=== PATIENT | male | born 1930 | race Caucasian/White ===

== ENCOUNTER 2016-05-04 15:38 | Inpatient (IN) | payer MEDICARE, OTHER ==
--- NOTE | ~2016-05-04 | DS ---
Discharge Summary [facility] [address] [place]. [address] NAME: GUSTAVO SHAIKH : 30 STATUS : DIS IN PAT#: [id number] AGE: 86 ADM/REG DATE : 05/04/16 MR#: [id number] REPORT SERV DATE: 05/06/16 DICTATED BY: ZAIDA GUEVARA DATE: 05/05/16 REPORT STATUS : Draft TRANSCRIBED BY: MODL DATE: 05/05/16 ADMISSION DATE: 05/04/2016 DISCHARGE DATE: SUMMARY DISCHARGE DIAGNOSES: 1. 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 2. Acute toxic encephalopathy. 3. Leukocytosis. 4. Coronary artery disease. 5. Hypertension. 6. Biventricular pacer. 7. Diabetes type 2. 8. Hypothyroidism. 9. LFT elevations with positive cholelithiasis. 10.Chronic debility. Discharged to [facility] [place]. HOSPITAL COURSE: The patient was admitted on 05/04/2016 by this junior technical writer initially for episodes of nausea from outside facility, was given Phenergan and had acute toxic encephalopathy and confusion after getting Phenergan with allergy to Phenergan. When arrived to emergency room, the patient was fairly unkempt but also found to be in TIM with CKD, volume depleted, and hyperkalemic, additionally having fairly advanced heart failure, history with biventricular pacer although was not clinically volume overloaded, and was actually volume depleted. The patient had initiated calcium D50 insulin protocol in emergency room for hyperkalemia. EKG did not show any ST changes, p.o. replacement of potassium from home medications, and diuresis were stopped. The patient was placed on serial BMP and lactic acid checks with serial abdominal exams. Close contact with nurse was made throughout the night. The patient was notably more comfortable and clinically was improving throughout the day. However, he has had fairly advanced disease process when discussing with the family member, Mr. Yves Lund, as he has had variety of illnesses that have become progressive debilitating with coronary artery disease, pacer, heart failure with EF 20%, diabetes and CKD. Despite aggressive attempts and while monitoring on telemetry, the patient was still not complaining of any abdominal pain, was doing well throughout night during the night checks with BURRITO MAKER. The patient was still responsive, approximately around 0215 hours just went out. BURRITO MAKER called for charge nurse and code blue was initiated. Potassium had decreased to 5.7, but lactate had slowly increased which prompted more close monitoring of abdominal exams. Code blue at ACS protocol was initiated around 0219 hours for PEA. ICU attending Dr. Haywood and attending of chart, this junior technical writer Dr. Guevara responded along with rapid response team, however, despite measures with CPR, chemical code, and electrical shocks and intubation, there was no return of pulse or spontaneous breathing. Multiple attempts to contact and grandson on chart were without availability. Discharge Summary [address] [place]. [address] NAME: GUSTAVO SHAIKH : 30 STATUS : DIS IN PAT#: [id number] AGE: 86 ADM/REG DATE : 05/04/16 MR#: [id number] REPORT SERV DATE: 05/06/16 DICTATED BY: ZAIDA GUEVARA DATE: 05/05/16 REPORT STATUS : Draft TRANSCRIBED BY: MODL DATE: 05/05/16 Additional contact [id number], Yves Lund, was contacted by this junior technical writer and updated. It reflected that the patient had been undergoing such a chronic medical debility, was actually considering more comfort measures, however, this was not reflected from any documentation seen in prior chart or from transfer. Series of events were detailed with the family, Mr. Yves Lund, who was only next of kin available, who understands and reports that he and his sister, the patient's were anticipating possible end of life scenario and possibility of comfort measures in near future. Family reports appreciation for rapid response team, care given on floor, and ICU staff for diligent care from [facility] and will contact family member, , acute change of events and passing of the patient at time of reported at 0247 hours. Per nursing notes and reports throughout night the patient was comfortable and peaceful prior to code blue and PEA arrest, house administration also at bedside with rapid response team. DDN/MODL Zaida Guevara MD / [id number] CC: MD Adrian Simon M.D.
--- NOTE | ~2016-05-04 | OP ---
Record Of [facility] [address] [place]. [address] NAME: GUSTAVO SHAIKH : 30 STATUS : ADM IN [facility]#: [id number] AGE: 86 ADM/REG DATE : 05/04/16 MR#: [id number] REPORT SERV DATE: 05/05/16 DICTATED BY: GERMAIN HAYWOOD DATE: 05/05/16 REPORT STATUS : Draft TRANSCRIBED BY: MODL DATE: 05/05/16 DATE OF PROCEDURE: 05/05/2016 PROCEDURE CODE 99 This is an 86-year-old patient who was admitted from the Hospitalist Service with nausea, vomiting, and history of peripheral arterial disease. Code Blue was called at 2:19 a.m. on 05/05/2016. The patient suddenly went unresponsive and pulseless. CPR was initiated, and upon connecting the patient to the monitor, he was in PEA. ACLS protocol was followed, and the patient received epinephrine x8 amps, one dose of vasopressin at 40 units, 4 amps of bicarb, 1 amp of calcium chloride, 1 amp of D-50, and 10 units of IV insulin to treat hyperkalemia. The patient also had an episode of ventricular tachycardia and was cardioverted x1 with 200 to 300 joules. The patient also received 300 of amiodarone and 100 mg of IV lidocaine. The patient was also intubated during the code. He remained in PEA throughout the entire code. Quick look with the echocardiogram at the bedside did not show any significant cardiac contractility, and the code was called at 02:47 a.m. The patient's family was notified and actually were in agreement to stop CPR and any further resuscitation. /TWINL Germain Haywood M.D. / [id number]
--- NOTE | ~2016-05-04 | HP ---
History And Physical [place] [id number] [facility] [place]. [address] NAME: GUSTAVO SHAIKH : 30 STATUS : ADM IN PAT#: [id number] AGE: 86 ADM/REG DATE : 05/04/16 MR#: [id number] REPORT SERV DATE: 05/04/16 DICTATED BY: ZAIDA GUEVARA DATE: 05/04/16 REPORT STATUS : Draft TRANSCRIBED BY: MODL DATE: 05/04/16 DATE OF ADMISSION: 05/04/2016 CHIEF COMPLAINT: Nausea and vomiting with abdominal pain. HISTORY OF PRESENT ILLNESS: The patient is an 86-year-old male, , who presents with having nausea and vomiting earlier today with abdominal pain. Subsequently was given Phenergan, which he appears to have an allergic reaction to, which causes confusion, and the patient subsequently became confused with this. Although the patient has been improving since arrival to the emergency room, is not still quite at his full baseline. The patient additionally had imaging done of his abdomen with no acute findings grossly. Pain appears to be improving. Nausea and vomiting have since resolved, but the patient was found to be hyperkalemic and volume depleted. Symptoms of lower abdominal pain were initially constant with moderate severity, improved, dull without radiation, associated with nausea, vomiting, and confusion after supportive treatment for nausea and vomiting. Was reported to have an episode of diarrhea, but not quite confirmed at this time. There are no worsening symptoms or relieving symptoms. Symptoms still are notably improved, as the patient is resting comfortably, only complaining about back pain that he has chronically. REVIEW OF SYSTEMS: For additional review of systems obtained to the best ability due to the patient's in and out confusion, somewhat generic answers. CONSTITUTIONAL: No fevers or chills are reported. EYES: No visual changes. ENT: No ear pain. No sore throat or congestion. NEURO: Did have confusion. No headaches. SKIN: Does have bruising on arms, but no rash. RESPIRATORY: Has reported occasional shortness of breath, but denies at this time. No wheezing. CV: No chest pain or palpitations. GI: Positive for nausea and vomiting. No diarrhea or dark stools. : No hematuria or frequency. MUSCULOSKELETAL: Does have mild myalgias and back pain, but no arthralgias. ENDOCRINE: Does have mild fatigue, but no polyuria reported. Does have hyperglycemia. HEME: No acute bleeding, but does have bruising episodes. IMMUNOLOGIC: No rhinorrhea. PSYCH: Mild confusion, but no anxiety. 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 SOCIAL HISTORY: No smoking, alcohol, or illicits. No family currently at bedside. Per outside records, POLST form not currently available, but was . History And Physical [address] [address] NAME: GUSTAVO SHAIKH : 30 STATUS : ADM IN [facility]#: [id number] AGE: 86 ADM/REG DATE : 05/04/16 MR#: [id number] REPORT SERV DATE: 05/04/16 DICTATED BY: ZAIDA GUEVARA DATE: 05/04/16 REPORT STATUS : Draft TRANSCRIBED BY: MODNahomy DATE: 05/04/16 FAMILY HISTORY: Heart disease in both parents. SURGICAL HISTORY: Has had pacer placement, toe amputation, laminectomy, and arthroscopy of shoulder. MANAGER OF ENTERPRISE: Dr. Randhawa for AICD and Dr. Vail for Vascular Surgery. PHYSICAL EXAMINATION: VITAL SIGNS: Blood pressure 111/70, temperature 97.6, pulse 82, O2 saturation 90% on room air. GENERAL: The patient is elderly, frail, slightly unkempt. Awakes on command, but fairly lethargic, falls asleep occasionally when not stimulated in conversation. EYES: No scleral icterus. EOMI. ENT: Nares patent. Dry mucous membranes. Tongue midline with dry tongue. RESPIRATORY: Clear to auscultation. No wheezes or rales. CV: Regular rate. No rubs. No pedal edema. GI: Soft, nontender. No rebound. Bowel sounds currently positive. : Appears normal male genitalia with Boykin placement. No gross rashes. SKIN: Warm and dry with bruising changes on hands bilaterally, have healed, multiple stages. LOWER EXTREMITIES: Does have old healed wounds on feet to prior surgical sites with mild erythema on amputated toe site, but no tenderness, redness, or drainage pustular. It is currently wrapped. LYMPH: No cervical or supraclavicular lymphadenopathy. HEME: No bleeding, but does have bruising sites. NEURO: Alert to person, not quite situation. Does move extremities, but fairly weak diffusely. Tongue midline. PSYCH: Calm, pleasant, but still slightly disoriented. ALLERGIES: TO PROMETHAZINE. HOME MEDICATIONS: Amiodarone, vitamin C, aspirin, Coreg, clarithromycin to have completion seen, Plavix, Amaryl, hydralazine, Imdur, levothyroxine, multivitamin, Protonix, Klor-Con, Florastor, Zoloft, Demadex. LABORATORY DATA: CBC; WBC count 15.2, H and H 13.2 and 40.0, platelets 337. Urinalysis, specific gravity 1.017 with negative nitrite and leuk esterase. CT abdomen and pelvis, bibasilar atelectasis and pleural fluid, cardiomegaly, AICD, cholelithiasis, minimal free fluid in the pelvis, calcific atherosclerosis. CMP, sodium 135 with potassium 6.5, chloride 102, carbon dioxide 25, BUN and creatinine 44 and 2.16 with glucose 202, calcium 8.7, T bili 0.6, AST 105, ALT 48, lipase 60, lactate 2.5. ASSESSMENT AND PLAN: 1. Hyperkalemia. 2. Acute toxic encephalopathy. 3. Acute kidney injury with volume depletion. 4. Leukocytosis. History And Physical [address] [address] NAME: GUSTAVO SHAIKH : 30 STATUS : ADM IN [facility]#: [id number] AGE: 86 ADM/REG DATE : 05/04/16 MR#: [id number] REPORT SERV DATE: 05/04/16 DICTATED BY: ZAIDA GUEVARA DATE: 05/04/16 REPORT STATUS : Draft TRANSCRIBED BY: MODNahomy DATE: 05/04/16 5. Coronary artery disease. 6. Hypertension. 7. Biventricular pacer history. 8. Diabetes type 2. 9. Hypothyroidism. 10.Mild lactic elevation. 11.LFT elevations with positive cholelithiasis. 12.History of vomiting. PLAN: 1. For hyperkalemia, stop p.o. replacements and Demadex, as the patient is also clinically volume depleted. IV fluids. Calcium, D50 with insulin given in the emergency room. We will give Kayexalate. EKG, although biventricular pattern, no peaked T wave. We will do serial EKG in a.m. Additionally, serial BMPs until corrected to safer level. Again, holding p.o. replacements. 2. Acute toxic encephalopathy. Stop Phenergan. Slowly improved when additionally optimized electrolytes. Does have additional leukocytosis, but no clear source of infection. We will additionally monitor ammonia with LFT elevations. 3. TIM with volume depletion. Hold diuretic, IV fluids. Does have history of CKD. Clinically, grossly volume depleted. 4. Leukocytosis. No signs or symptoms of acute infection. Has evaluated, multiple UAs. No cough at this time. Has been on clarithromycin. Foot site dressed. Does have mild erythema, but no drainage. We will need to continue to monitor reassessment and wound care evaluation. Has had vascular amputation of toe. Continue to monitor. We will check procalcitonin. Serial lactates in the presence of mild lactic acidosis. 5. Coronary artery disease. Aspirin and Plavix. Hold Demadex. 6. Hypertension. Holding parameters on medications, currently at goal. 7. Biventricular pacer, on amiodarone. 8. Diabetes type 2, on p.o. medications. We will hold these at this time. Place on sliding scale insulin. Insulin given in the emergency room due to hyperkalemia. We will monitor serially. 9. Hypothyroidism, on replacement. Check TSH while on amiodarone. 10.Mild lactic elevation. We will need to recheck possible stress response with volume depletion. We will have serial lactic checks. 11.LFT elevations. Does have positive cholelithiasis on CT. Serial monitoring. Abdominal exam appears slightly benign at this time, which appears improved from initial presentation on amiodarone. No prior hep panel. We will check hepatitis panel and monitor ammonia level. 12.Vomiting. It appears to be resolved. Allergic to Phenergan. CT has been performed. Supportive therapy. 13.We will obtain records from outside facility. No current POLST form on chart. We will need reassessment for this. Prior records reviewed. DISPOSITION: Pending response to treatment plan above and improvement of electrolytes, creatinine, liver function, and leukocytosis. History And Physical [address] [place]. [address] NAME: GUSTAVO SHAIKH : 30 STATUS : ADM IN PAT#: [id number] AGE: 86 ADM/REG DATE : 05/04/16 MR#: [id number] REPORT SERV DATE: 05/04/16 DICTATED BY: ZAIDA GUEVARA DATE: 05/04/16 REPORT STATUS : Draft TRANSCRIBED BY: DONNA DATE: 05/04/16 DDN/DONNA Zaida Guevara MD / [id number] CC: MD Adrian Simon M.D.
--- NOTE | ~2016-05-04 | OP ---
Record Of [facility] [address] [place] [address] NAME: GUSTAVO SHAIKH : 30 STATUS : ADM IN PAT#: [id number] AGE: 86 ADM/REG DATE : 05/04/16 MR#: [id number] REPORT SERV DATE: 05/05/16 DICTATED BY: GERMAIN HAYWOOD DATE: 05/05/16 REPORT STATUS : Draft TRANSCRIBED BY: MODL DATE: 05/05/16 DATE OF PROCEDURE: 05/05/2016 PROCEDURE: Intubation. REASON: Patient in cardiac arrest with PEA. The patient was unresponsive and no sedation was needed in order to intubate the patient. A curved blade was used. Vocal cords were well visualized and a #8 endotracheal tube was inserted on the first attempt without any difficulty. CO2 sensor changed appropriate color from blue to yellow and bilateral breath sounds were heard. /MODL Germain Haywood M.D. / [id number] CC: MD Adrian Simon M.D.
[2016-05-04 14:58] LABS: BASOPHILS 0.3 %; BASOPHILS ABSOLUTE 0.04 10/3/uL (0.0-0.16); EOSINOPHILS 0.1 %; EOSINOPHILS ABSOLUTE 0.02 10/3/uL (0.0-0.53); ER CBC TAT 0 Hrs 05 Mins; HEMOGLOBIN 13.2 g/dL (13.6-17.8); IMMATURE GRANULOCYTES 0.5 %; IMMATURE GRANULOCYTES ABSOLUTE 0.07 10/3/uL (0.0-0.11); LYMPHOCYTES 15.6 %; LYMPHOCYTES ABSOLUTE 2.38 10/3/uL (0.67-4.30); MEAN CORPUSCULAR HEMOGLOB 29.9 pg (26.0-34.0); MEAN PLATELET VOLUME 9.2 fL (9.2-13.0); MONOCYTES 7.3 %; MONOCYTES ABSOLUTE 1.11 10/3/uL (0.21-1.20); NEUTROPHILS 76.2 %; NEUTROPHILS ABSOLUTE 11.61 10/3/uL (2.02-8.40); PLATELET COUNT 337 10/3/uL (150-400); RBC DISTRIBUTION WIDTH 14.5 % (12.0-16.0); RED CELL COUNT 4.42 10/6/uL (4.7-6.1); WHITE BLOOD CELLS 15.2 10/3/uL (4.5-10.5)
[2016-05-04 14:59] LABS: MANUAL DIFF NO %; MEAN CORPUSCULAR VOLUME 90.5 fL (80-100)
[2016-05-04 15:03] LABS: ASCORBIC ACID (UR NOT ORDER) 40 (NEG); BILIRUBIN, URINE NEGATIVE (NEG); ER URINALYSIS TAT 0 Hrs 10 Mins; KETONE, URINE NEGATIVE (NEG); LEUKOCYTE ESTERASE(NOT OR NEG (NEG); NITRITE (URINE) NEG (NEG); WBC (NOT ORDERED) (RFLEX) < 1 (0-5)
[2016-05-04 15:17] LABS: A/G RATIO 0.6 (0.7-1.9); ALBUMIN 3.1 G/DL (3.5-5.0); CALCIUM, SERUM 8.7 MG/DL (8.5-10.4); CHLORIDE, SERUM 102 MMOL/L (96-112); CO2 (CARBON DIOXIDE) 25 MMOL/L (24-34); CREATININE 2.16 MG/DL (0.70-1.30); GFR AFRICAN AMERICAN 31 ML/MIN (>=60); GFR NON AFRICAN AMERICAN 27 ML/MIN (>=60); SGPT(ALT) 48 U/L (5-65); SODIUM, SERUM 135 MMOL/L (135-148); TOTAL BILIRUBIN 0.6 MG/DL (0-1.2); TOTAL PROTEIN 8.1 G/DL (6.0-8.5)
[2016-05-04 15:18] LABS: ALKALINE PHOSPHATASE 112 U/L (45-117); BUN (BLOOD UREA NITROGEN) 44 MG/DL (6-23); GLUCOSE, SERUM 202 MG/DL (60-99); LACTATE 2.5 MMOL/L (0.3-2.4); POTASSIUM, SERUM 6.5 MMOL/L (3.5-5.3); SGOT(AST) 105 U/L (5-40)
[~2016-05-04 15:38] MED LIST: *UNABLE2; AMARYL2 PO; APRES10B PO; ASAB PO; ATV.5 PO; ATV1 PO; AUG875 PO; AVELOX400 PO; BEN25 PO; CHLO-TUSS PO; CIP5 PO; CORDARONE PO; COREG3 PO; COREG6 PO; DEMA20 PO; DRAMAMINE25 MG PO; EXCEDRIN MIGRA1 EAC1 PO; FERROUS SULF324 MG PO; GLUCOTRO10 PO; GLUCOTROL5 PO; GLUCXL2.5 PO; HALF81 PO; IMDUR30 PO; IRON325 MG PO; JANTOVEN1 MG PO; JANTOVEN2 MG PO; JANTOVEN3 MG PO; KLOR-CON M1010 MEQ PO; KLOR-CON M2020 MEQ PO; KLOR-CON20 MEQ PO; L20 PO; L40 PO; LANTUS SC; LEVAQUIN750 MG PO; LEVOTHYROXIN100 MCG PO; LIPITOR20 PO; MAGOX4 PO; NIACIN 500 PO; OMNICEF300 PO; OXYCOD PO; PACERONE100 MG PO; PCET PO; PLAVIX PO; PRILO PO; PRIN10 PO; SIMPLY SLEEP25 MG PO; SYN1 PO; SYN88 PO; TUSSIN DM1 M1 PO; ULTRAM50 PO; VICODINTAB PO; VITAMIN D1000 UNI1 PO; VITAMIN D31000 UNIT PO; ZITH250 PO; ZOCOR40 PO; ZOL100 PO
[2016-05-04] MEDS ORDERED: ASAB PO (16:00)
[2016-05-04] MEDS ORDERED: COREG3 PO (16:03)
[2016-05-04] MEDS ORDERED: PLAVIX PO (16:03)
[2016-05-04] MEDS ORDERED: KLOR-CON M2020 MEQ PO (16:04)
[2016-05-04] MEDS ORDERED: LEVOTHYROXIN100 MCG PO (16:04)
[2016-05-04] MEDS ORDERED: IMDUR30 PO (16:04)
[2016-05-04] MEDS ORDERED: APRES10B PO (16:05)
[2016-05-04] MEDS ORDERED: ZOL100 PO (16:05)
[2016-05-04] MEDS ORDERED: AMARYL2 PO (16:06)
[2016-05-04] MEDS ORDERED: MULTIVITAMI1 PO (16:06)
[2016-05-04] MEDS ORDERED: PROTONIX20 MG PO (16:06)
[2016-05-04] MEDS ORDERED: FLORASTOR250 MG PO (16:06)
[2016-05-04] MEDS ORDERED: PACERONE100 MG PO (16:07)
[2016-05-04] MEDS ORDERED: VITC500 PO (16:07)
[2016-05-04] MEDS ORDERED: DEMA10T PO (16:07)
[2016-05-04] MEDS ORDERED: BIAXIN250 PO (16:08)
[2016-05-04 20:21] LABS: PHOSPHORUS, SERUM 4.2 MG/DL (2.5-4.5); TROPONIN I 0.03 NG/ML (<0.05)
[2016-05-04 20:36] LABS: PROCALCITONIN 0.05 ng/mL (<0.5)
[2016-05-04 22:13] LABS: GLYCOHEMOGLOBIN (HbA1c) 6.2 % (4.7-6.1)
[2016-05-04 23:22] LABS: BUN (BLOOD UREA NITROGEN) 44 MG/DL (6-23); CALCIUM, SERUM 8.5 MG/DL (8.5-10.4); CHLORIDE, SERUM 107 MMOL/L (96-112); CO2 (CARBON DIOXIDE) 23 MMOL/L (24-34); CREATININE 2.01 MG/DL (0.70-1.30); GFR AFRICAN AMERICAN 34 ML/MIN (>=60); GFR NON AFRICAN AMERICAN 29 ML/MIN (>=60); POTASSIUM, SERUM 5.7 MMOL/L (3.5-5.3); SODIUM, SERUM 140 MMOL/L (135-148)
[2016-05-04 23:23] LABS: GLUCOSE, SERUM 100 MG/DL (60-99)
[2016-05-05 03:00] LABS: HEMOGLOBIN 10.8 g/dL (13.6-17.8); MEAN CORPUS HGB CONC 31.8 g/dL (32.0-36.0); MEAN CORPUSCULAR HEMOGLOB 29.8 pg (26.0-34.0); MEAN PLATELET VOLUME 10.1 fL (9.2-13.0); RBC DISTRIBUTION WIDTH 14.9 % (12.0-16.0); RED CELL COUNT 3.62 10/6/uL (4.7-6.1); WHITE BLOOD CELLS 22.7 10/3/uL (4.5-10.5)
[2016-05-05 03:01] LABS: MANUAL DIFF YES %; MEAN CORPUSCULAR VOLUME 93.9 fL (80-100); PLATELET COUNT 206 10/3/uL (150-400)
[2016-05-05 03:11] LABS: ALKALINE PHOSPHATASE 101 U/L (45-117); BUN (BLOOD UREA NITROGEN) 43 MG/DL (6-23); CALCIUM, SERUM 8.8 MG/DL (8.5-10.4); CHLORIDE, SERUM 107 MMOL/L (96-112); CO2 (CARBON DIOXIDE) 19 MMOL/L (24-34); SGPT(ALT) 158 U/L (5-65); SODIUM, SERUM 140 MMOL/L (135-148); TOTAL BILIRUBIN 0.8 MG/DL (0-1.2); TROPONIN I 0.04 NG/ML (<0.05)
[2016-05-05 03:17] LABS: A/G RATIO 0.6 (0.7-1.9); ALBUMIN 2.1 G/DL (3.5-5.0); CREATININE 2.52 MG/DL (0.70-1.30); GFR AFRICAN AMERICAN 26 ML/MIN (>=60); GFR NON AFRICAN AMERICAN 22 ML/MIN (>=60); GLOBULIN 3.6 G/DL (2.5-4.1); GLUCOSE, SERUM 254 MG/DL (60-99); SGOT(AST) 470 U/L (5-40); TOTAL PROTEIN 5.7 G/DL (6.0-8.5)
[2016-05-05 03:18] LABS: POTASSIUM, SERUM 6.9 MMOL/L (3.5-5.3)
[2016-05-05 03:25] LABS: BAND NEUTROPHILS 4 %; EOSINOPHILS 1 %; EOSINOPHILS ABSOLUTE (CALC) 0.23 10/3/uL (0.0-0.53); IMMATURE GRANS ABSOLUTE (CALC) 0.23 10/3/uL (0.0-0.11); LYMPHOCYTES 16 %; LYMPHOCYTES ABSOLUTE (CALC) 3.63 10/3/uL (0.67-4.30); METAMYELOCYTES 1 %; MONOCYTES 2 %; MONOCYTES ABSOLUTE (CALC) 0.45 10/3/uL (0.21-1.20); NEUTROPHILS ABSOLUTE (CALC) 18.16 10/3/uL (2.02-8.40); NUCLEATED RED BLOOD CELLS 3 /100WBC (0); SEGMENTED NEUTROPHIL (0) 76 %; TOTAL NUCLEATED CELLS 100
[2016-05-05 03:26] LABS: OVALOCYTES 1+ (3-10/OIF) (0-2/OIF); POIKILOCYTOSIS 1+ (5-10/OIF) (0-5/OIF)
[2016-05-05 11:02] LABS: HEPATITIS B SURFACE ANTIGEN NON-REACTIVE (NON-REACT)
[2016-05-05 11:24] LABS: HEPATITIS C ANTIBODY NON-REACTIVE (NON-REACT)
[2016-05-05 11:25] LABS: HEPATITIS B CORE AB IGM NON-REACTIVE (NON-REAC)
[2016-05-05 11:27] LABS: HEP A ANTIBODY IGM NON-REACTIVE (NON-REACT)
== END 2016-05-05 10:18 | disposition expired | DRG 682 ==
LOC: ER 15:38 → 6NO 16:40
PROVIDERS: Hospitalist; Student in an Organized Health Care Education/Training Program
PROC: 5A2204Z Restoration of Cardiac Rhythm, Single (ICD-10-PCS; principal; 2016-05-05)
PROC: 0BH17EZ Insertion of Endotracheal Airway into Trachea, Via Natural or Artificial Opening (ICD-10-PCS; 2016-05-05)
DX: N17.9 Acute kidney failure, unspecified (principal); G92 Toxic encephalopathy; I47.2 Ventricular tachycardia; I13.0 Hypertensive heart and chronic kidney disease with heart failure and stage 1 through stage 4 chronic kidney disease, or unspecified chronic kidney disease; E87.2 Acidosis; I50.22 Chronic systolic (congestive) heart failure; E11.22 Type 2 diabetes mellitus with diabetic chronic kidney disease; E87.5 Hyperkalemia; E86.9 Volume depletion, unspecified; I25.10 Atherosclerotic heart disease of native coronary artery without angina pectoris; E03.9 Hypothyroidism, unspecified; N18.3 Chronic kidney disease, stage 3 (moderate); K80.20 Calculus of gallbladder without cholecystitis without obstruction; T42.6X5A Adverse effect of other antiepileptic and sedative-hypnotic drugs, initial encounter; I49.3 Ventricular premature depolarization; D72.829 Elevated white blood cell count, unspecified; F32.9 Major depressive disorder, single episode, unspecified; Z88.8 Allergy status to other drugs, medicaments and biological substances; Z89.421 Acquired absence of other right toe(s); Z95.810 Presence of automatic (implantable) cardiac defibrillator; Z79.02 Long term (current) use of antithrombotics/antiplatelets; Z87.440 Personal history of urinary (tract) infections; I46.9 Cardiac arrest, cause unspecified
CPT/HCPCS: 31500; 36600; 74176; 80048; 80053; 80074; 81001; 82140; 82330; 82803; 82947; 82962; 83036; 83605; 83690; 83735; 84100; 84132; 84145; 84295; 84443; 84484; 85014; 85025; 92950; 93005; 96374; 96375; 99291; A9270-GY; J0610; J2405